=== PATIENT | female | born 1990 | race Caucasian/White ===

== ENCOUNTER 2016-05-10 18:34 | Emergency (ER) | payer MEDICAID, OTHER ==
[~2016-05-10] VITALS: Ht 157.5 cm; Wt 78.5 kg
[~2016-05-10 18:34] MED LIST: CIPR500T4 PO; HYDR-762 PO
[2016-05-10 19:09] VITALS: Ht 157.5 cm; Wt 78.5 kg
[2016-05-10] MEDS ORDERED: CETI10CA PO (19:57)
[2016-05-10] MEDS ORDERED: GUAI473L22 PO (19:57)
[2016-05-10] MEDS ORDERED: ALBU8.5H3 INH (19:57)
[2016-05-10] MEDS ORDERED: IBUP-1542 PO (19:57)
--- NOTE | 2016-05-10 20:02 | ERD ---
ER Documentation Chief Complaint Date/Time DATE: 05/10/16 TIME: 19:59 Chief Complaint bodyaches, cwp, chills, cough x 1 week HPI 26-year-old female presents here in emergency department for complaints of cough , headache, body aches, chills, chest wall pain when coughing for one week. Patient has been having dry cough, does not cough any phlegm or blood. Patient does not have any shortness of breath, has episodes of wheezing at times. Patient does not have any fever but is having on and off chills. Patient denies any sick contacts. Patient took Tylenol to help with the symptoms with only mild relief. ROS All systems reviewed and are negative except as per history of present illness. Medications Home Meds Active Scripts Albuterol Sulfate* (Proair HFA*) 8.5 Gm Hfa.aer.ad, 2 PUFF INH Q4H Y for WHEEZING AND SOB, #1 INHALER Prov:AZIZA MATTA NP 05/10/16 Ibuprofen* (Motrin*) 600 Mg Tab, 600 MG PO Q6H Y for PAIN AND OR ELEVATED TEMP, #30 TAB Prov:AZIZA MATTA NP 05/10/16 Cetirizine Hcl* (Zyrtec*) 10 Mg Capsule, 10 MG PO DAILY, #30 TAB.CHEW Prov:AZIZA MATTA NP 05/10/16 Guaifenesin-Codeine Phosphate* (Guaifenesin* AC Cough Syrup) 473 Ml Liquid, 10 ML PO Q4H Y for COUGH, #120 ML Prov:AZIZA MATTA NP 05/10/16 Ciprofloxacin Hcl* (Ciprofloxacin Hcl*) 500 Mg Tablet, 500 MG PO BID for 5 Days , TAB Prov:JEFF HALEY MD 06/14/15 Hydrocodone Bit-Acetaminophen* ([place]*) 10-325 Mg Tablet, 1 TAB PO Q6 Y for PAIN , #10 TAB Prov:JEFF HALEY MD 06/14/15 Allergies Allergies: Coded Allergies: No Known Allergy (Verified , 04/21/12) PMhx/Soc Medical and Surgical Hx: pt denies Medical Hx, pt denies Surgical Hx History of Surgery: No Anesthesia Reaction: No Hx Neurological Disorder: No Hx Respiratory Disorders: No Hx Cardiac Disorders: No Hx Psychiatric Problems: No Hx Miscellaneous Medical Probl: No Hx Alcohol Use: No Hx Substance Use: No Hx Tobacco Use: No FmHx Family History: No coronary disease, No diabetes, No other Physical Exam Vitals Vital Signs Date Time Temp Pulse Resp B/P Pulse Ox O2 Delivery O2 Flow Rate FiO2 05/10/16 19:09 98.2 80 18 123/62 100 Physical Exam GENERAL: The patient is well developed and appropriate for usual state of health, in no apparent distress. HEENT: Atraumatic. Ears: Normal tympanic membrane, no erythema or bulging. No ear canal swelling. No ear discharge. Nose: Erythematous nasal turbinates with clear nasal discharge. Throat: oropharynx erythematous with postnasal drip. No tonsillar swelling or tonsillar exudates. No lymphadenopathy. CHEST: Clear to auscultation bilaterally. There are no rales, wheezes or rhonchi. HEART: Regular rate and rhythm. No murmurs, clicks, rubs or gallops. No S3 or S4. ABDOMEN: Soft, nontender and nondistended. Good bowel sounds. No rebound or guarding. No gross peritonitis. No gross organomegaly or masses. No Posada sign or McBurney point tenderness. BACK: No midline or flank tenderness. EXTREMITIES: Equal pulses bilaterally. There is no peripheral clubbing, cyanosis or edema. No focal swelling or erythema. Full range of motion. Grossly neurovascularly intact. NEURO: Alert and oriented. Cranial nerves 2-12 intact. Motor strength in all 4 extremities with 5/5 strength. Sensation grossly intact. Normal speech and gait. SKIN: There is no apparent rash or petechia. The skin is warm and dry. HEMATOLOGIC AND LYMPHATIC: There is no evidence of excessive bruising or lymphedema. No gross cervical, axillary, or inguinal lymphadenopathy. Procedures/MDM Medical Decision Making: Patient symptoms are most likely consistent with acute bronchitis, which viral in origin. There is low suspicion for Pneumonia at this time since patients lungs sounds are clear, patient O2 saturation is normal and patient doesnt show any respiratory distress. Radiology exam is not indicated at this time. There is low suspicion for other cardiopulmonary emergencies at this time such as CHF, Pulmonary Embolism, Pneumothorax, or any other cardiopulmonary emergencies at this time. There is low suspicion for sepsis. Patient appears well and is hemodynamically stable. Fever is controlled with medicines. Disposition: Home. Condition: Stable Prescriptions: Albuterol, ibuprofen, Zyrtec, guaifenesin with codeine Instructions: Patient is advised to take medications as prescribed. Patient is advised to rest. Patient advised to increase fluid intake, do humidifier at home and if possible, do salt water gargles. Patient is advised that if symptoms are worse, shortness of breath, uncontrolled fever, stridor, vomiting, worst signs and symptoms to return to emergency department immediately. Otherwise, patient is advised to follow up with primary doctor in 5-7 days. Departure Diagnosis: Primary Impression: Acute bronchitis Bronchitis organism: unspecified organism Qualified Code: J20.9 - Acute bronchitis, unspecified organism Condition: Stable Patient Instructions: Bronchitis With Wheezing (Adult) AZIZA MATTA NP May 10, 2016 20:01
== END 2016-05-10 19:59 | disposition home or self-care (01) ==
LOC: E/R 18:34
DX: J20.9 Acute bronchitis, unspecified (principal)
CPT/HCPCS: 99283

== ENCOUNTER 2016-11-11 21:39 | Emergency (ER) | payer OTHER ==
[~2016-11-11] VITALS: Ht 162.6 cm; Wt 79.1 kg
[~2016-11-11 21:39] MED LIST changes: +ALBU8.5H3 INH; +CETI10CA PO; +GUAI473L22 PO; +IBUP-1542 PO
[2016-11-11 21:47] VITALS: Ht 162.6 cm; Wt 79.1 kg
[2016-11-11] MEDS ORDERED: HYDROmorphONE 1 MG/ML SYG IV STA (22:08)
[2016-11-11] MEDS ORDERED: ONDANSETRON 4 MG INJ IV STA (22:08)
[2016-11-11 22:30] LABS: BASOPHILS % 0.3 % (0.0-2.0); EOSINOPHILS % 1.5 % (0.0-7.0); HEMATOCRIT 35.6 % (37.0-47.0); HEMOGLOBIN 12.4 g/dl (12.0-16.0); LYMPHOCYTES % 34.5 % (15.0-51.0); MEAN CORPUSCULAR HEMOGLOBIN 31.6 pg (29.0-33.0); MEAN CORPUSCULAR HGB CONC 34.8 g/dl (32.0-37.0); MEAN CORPUSCULAR VOLUME 90.6 fl (82.0-101.0); MEAN PLATELET VOLUME 8.8 fl (7.4-10.4); MONOCYTES % 9.4 % (0.0-11.0); NEUTROPHILS % 54.1 % (39.0-77.0); PLATELET COUNT 329 10^3/UL (140-415); RED BLOOD COUNT 3.93 10^6/ul (4.20-5.40); RED CELL DISTRIBUTION WIDTH 12.3 % (11.5-14.5); WHITE BLOOD COUNT 9.4 10^3/ul (4.8-10.8)
[2016-11-11 22:31] LABS: EOSINOPHILS # 0.1 10^3/ul (0.0-0.5); LYMPHOCYTES # 3.3 10^3/ul (0.8-2.9); MONOCYTE # 0.9 10^3/ul (0.3-0.9); NEUTROPHIL # 5.1 10^3/ul (1.6-7.5)
[2016-11-11 22:52] LABS: ALBUMIN 4.5 g/dl (3.3-4.9); ALBUMIN/GLOBULIN RATIO 1.5; BILIRUBIN,INDIRECT 0.3 mg/dl (0-1.1); BILIRUBIN,TOTAL 0.3 mg/dl (0.2-1.3); CALCIUM 9.3 mg/dl (8.4-10.2); CREATININE 0.56 mg/dl (0.44-1.00); POTASSIUM 3.8 mmol/L (3.5-5.1); TOTAL PROTEIN 7.5 g/dl (6.1-8.1)
--- NOTE | 2016-11-11 22:54 | ERD ---
ER Documentation Chief Complaint Date/Time DATE: 11/11/16 TIME: 22:52 Chief Complaint back pain at home while sitting on toilet unable to get up HPI This is a 26-year-old female with a fall history with chronic low back pain due to lumbar fracture. Patient states she has chronic pain most days. She said this morning she is going to work and she noticed her pain was typical but worse than usual. She says got gradually worse as the day goes on. She says that she was on the toilet and was unable to get up because of her severe back pain. No radiation down the legs but does say she has some mild lower abdominal pain diffusely. This is a new symptom. No nausea vomiting diarrhea. Patient is speaking with a high-pitched force, histrionic speech ROS All systems reviewed and are negative except as per history of present illness. Medications Home Meds Active Scripts Albuterol Sulfate* (Proair HFA*) 8.5 Gm Hfa.aer.ad, 2 PUFF INH Q4H Y for WHEEZING AND SOB, #1 INHALER Prov:AZIZA MATTA NP 05/10/16 Ibuprofen* (Motrin*) 600 Mg Tab, 600 MG PO Q6H Y for PAIN AND OR ELEVATED TEMP, #30 TAB Prov:AZIZA MATTA NP 05/10/16 Cetirizine Hcl* (Zyrtec*) 10 Mg Capsule, 10 MG PO DAILY, #30 TAB.CHEW Prov:AZIZA MATTA NP 05/10/16 Guaifenesin-Codeine Phosphate* (Guaifenesin* AC Cough Syrup) 473 Ml Liquid, 10 ML PO Q4H Y for COUGH, #120 ML Prov:AZIZA MATTA NP 05/10/16 Ciprofloxacin Hcl* (Ciprofloxacin Hcl*) 500 Mg Tablet, 500 MG PO BID for 5 Days , TAB Prov:JEFF HALEY MD 06/14/15 Hydrocodone Bit-Acetaminophen* ([place]*) 10-325 Mg Tablet, 1 TAB PO Q6 Y for PAIN , #10 TAB Prov:JEFF HALEY MD 06/14/15 Allergies Allergies: Coded Allergies: No Known Allergy (Verified , 04/21/12) PMhx/Soc History of Surgery: No Anesthesia Reaction: No Hx Neurological Disorder: No Hx Respiratory Disorders: No Hx Cardiac Disorders: No Hx Psychiatric Problems: No Hx Miscellaneous Medical Probl: Yes (HX OF BACK PAIN/INJURY) Hx Alcohol Use: No Hx Substance Use: No Hx Tobacco Use: No Smoking Status: Never smoker FmHx Family History: No coronary disease Physical Exam Vitals Vital Signs Date Time Temp Pulse Resp B/P Pulse Ox O2 Delivery O2 Flow Rate FiO2 11/11/16 22:01 74 18 112/72 99 Room Air 11/11/16 21:47 98.7 78 18 118/67 99 Physical Exam Const: Well-developed, well-nourished Head: Atraumatic, normocephalic Eyes: Normal Conjunctiva, PERRLA, EOMI, normal sclera, no nystagmus ENT: Normal External Ears, Nose and Mouth, moist mucus membranes. Neck: Full range of motion. No meningismus, no lymphadenopathy. Resp: Clear to auscultation bilaterally, no wheezing, rhonchi, rales Cardio: Regular rate and rhythm, no murmurs, S1 S2 present Abd: Soft, slight bilateral lower quadrant tenderness, non distended. Normal bowel sounds, no guarding or rebound, no pulsitile abdominal masses or bruits Skin: No petechiae or rashes, no ecchymosis , no maculopapular rash Back: Pain to the right lower lumbar paraspinal musculature that is moderate] Ext: No cyanosis, or edema, FROM x 4, normal inspection, neurovascularly intact x 4 Neur: Awake and alert, STR 5/5 x 4, sensation intact x 4, no focal findings, cerebellum intact Psych: Normal Mood and Affect Result Diagram: 11/11/16220611/11/162206 Results 24 hrs Laboratory Tests Test 11/11/16 22:07 White Blood Count 9.410^3/ul Red Blood Count 3.9310^6/ul Hemoglobin 12.4g/dl Hematocrit 35.6% Mean Corpuscular Volume 90.6fl Mean Corpuscular Hemoglobin 31.6pg Mean Corpuscular Hemoglobin Concent 34.8g/dl Red Cell Distribution Width 12.3% Platelet Count 00200^3/UL Mean Platelet Volume 8.8fl Neutrophils % 54.1% Lymphocytes % 34.5% Monocytes % 9.4% Eosinophils % 1.5% Basophils % 0.3% Nucleated Red Blood Cells % 0.0/100WBC Neutrophils # 5.110^3/ul Lymphocytes # 3.310^3/ul Monocytes # 0.910^3/ul Eosinophils # 0.110^3/ul Basophils # 0.010^3/ul Nucleated Red Blood Cells # 0.010^3/ul Sodium Level 144mmol/L Potassium Level 3.8mmol/L Chloride Level 104mmol/L Carbon Dioxide Level 24mmol/L Anion Gap 20 Blood Urea Nitrogen 7mg/dl Creatinine 0.56mg/dl Glucose Level 109mg/dl Calcium Level 9.3mg/dl Total Bilirubin 0.3mg/dl Direct Bilirubin 0.00mg/dl Indirect Bilirubin 0.3mg/dl Aspartate Amino Transf (AST/SGOT) 35IU/L Alanine Aminotransferase (ALT/SGPT) 82IU/L Alkaline Phosphatase 98IU/L Total Protein 7.5g/dl Albumin 4.5g/dl Globulin 3.00g/dl Albumin/Globulin Ratio 1.50 Current Medications Medications (Trade) Dose Ordered Sig/Sharonda Route PRN Reason Start Time Stop Time Status Last Admin Dose Admin Hydromorphone HCl (Dilaudid) 1 mg ONCE STAT IV 11/11/16 22:08 11/11/16 22:10 DC 11/11/16 22:16 Ondansetron HCl (Zofran Inj) 4 mg ONCE STAT IV 11/11/16 22:08 11/11/16 22:10 DC 11/11/16 22:16 IV Flush 10 ml 10 ml STK-MED ONCE .ROUTE 11/11/16 23:23 11/11/16 23:24 DC 11/11/16 23:37 Sodium Chloride (NS) 100 ml @ ud STK-MED ONCE .ROUTE 11/11/16 23:23 11/11/16 23:24 DC 11/11/16 23:37 Iohexol (Omnipaque 300mg/ ml) 150 ml STK-MED ONCE .ROUTE 11/11/16 23:23 11/11/16 23:24 DC 11/11/16 23:37 Procedures/MDM PROCEDURE: CT ABDOMEN/PELVIS WITH CONTRAST CLINICAL INDICATION: 26-year-old female with abdominal pain. TECHNIQUE: The study was performed utilizing a [employer] V[employer] 64-slice CT scanner. Direct axial sections were obtained through the abdomen and pelvis with the use of 100 cc of Isovue-300 nonionic intravenous contrast material. Sagittal and coronal reformations were obtained. One or more of the following dose reduction techniques were utilized: automated exposure control, adjustment of the mA and/or kV according to patient's size or use of iterative reconstruction technique. The images were reviewed on a PACS workstation. CTD/ vol = 11.0 mGy; Total Exam DLP = 635.4 mGy-cm. COMPARISON: CT abdomen/pelvis June 14, 2015. FINDINGS: There is trace bibasilar subsegmental atelectasis. There is no evidence for significant pleural effusion. The liver has a normal contour and appears to be enlarged measuring 26.8 cm in maximal length. There is diffuse decreased density throughout the liver consistent with fatty infiltration but without focal areas of abnormal density or contrast enhancement. No intrahepatic nor extrahepatic biliary ductal dilatation is seen. The gallbladder demonstrates no wall thickening nor pericholecystic fluid. No biliary stones are evident. The pancreas is without areas of abnormal attenuation or contrast enhancement. This spleen is identified and has a normal size without abnormal density or contrast enhancement. The adrenal glands are unremarkable. The kidneys are functional bilaterally without abnormal density. No hydroureteronephrosis nor nephroureterolithiasis is evident. The urinary bladder contains a small volume of urine. There is no evidence for bowel obstruction. The appendix is visualized and is without edema or surrounding inflammatory reaction. The uterus is anteflexed. There is a probable collapse right ovarian cyst measuring approximately 11 x 10 x 9 mm. There is minimal right adnexal free fluid. The aortoiliac vessels are without aneurysmal dilatation. The osseous structures are intact. IMPRESSION: 1. Hepatomegaly with diffuse fatty infiltration. 2. No CT evidence for appendicitis. 3. Probable collapsed right ovarian cyst. 4. Minimal right adnexal free fluid. .Estuardo Cadena MD, Date Time Electronically viewed and signed by .Estuardo Cadena MD, MD on 11/12/2016 00:46 .M/ CC: TIFFANY MORGAN DO Patient is feeling better and requesting more pain medication for these. Inquired about the right adnexal pain to his it looks like she has a ruptured ovarian cyst. She says she did have a sharp incision pain yesterday but is not better. This does clinically correlate We will send the patient home on pain medication and muscle relaxers and have her start icing her back. Departure Diagnosis: Primary Impression: Back pain Back pain location: low back pain Chronicity: acute Back pain laterality: right Sciatica presence: without sciatica Qualified Code: M54.5 - Acute right-sided low back pain without sciatica Additional Impression: Ruptured ovarian cyst Condition: Stable TIFFANY MORGAN DO Nov 11, 2016 22:54
[2016-11-11] MEDS ORDERED: IOHEXOL 300MG/ML 150 ML BTL ONE (23:23)
[2016-11-11] MEDS ORDERED: SOD CHLORIDE 0.9% 100 ML ONE (23:23)
--- NOTE | 2016-11-12 00:47 | RADRPT ---
PROCEDURE: CT ABDOMEN/PELVIS WITH CONTRAST CLINICAL INDICATION: 26-year-old female with abdominal pain. TECHNIQUE: The study was performed utilizing a [employer] VCT 64-slice CT scanner. Direct axia l sections were obtained through the abdomen and pelvis with the use of 100 cc of Isovue-300 nonioni c intravenous contrast material. Sagittal and coronal reformations were obtained. One or more of the following dose reduction techniques were utilized: automated exposure control, adjustment of the mA and/or kV according to patient's size or use of iterative reconstruction technique. The images wer e reviewed on a PACS workstation. CTD/vol = 11.0 mGy; Total Exam DLP = 635.4 mGy-cm. COMPARISON: CT abdomen/pelvis June 14, 2015. FINDINGS: There is trace bibasilar subsegmental atelectasis. There is no evidence for significant pleural eff usion. The liver has a normal contour and appears to be enlarged measuring 26.8 cm in maximal lengt h. There is diffuse decreased density throughout the liver consistent with fatty infiltration but wi thout focal areas of abnormal density or contrast enhancement. No intrahepatic nor extrahepatic bili lucy ductal dilatation is seen. The gallbladder demonstrates no wall thickening nor pericholecystic f luid. No biliary stones are evident. The pancreas is without areas of abnormal attenuation or contra st enhancement. This spleen is identified and has a normal size without abnormal density or contras t enhancement. The adrenal glands are unremarkable. The kidneys are functional bilaterally without a bnormal density. No hydroureteronephrosis nor nephroureterolithiasis is evident. The urinary bladder contains a small volume of urine. There is no evidence for bowel obstruction. The appendix is visualized and is without edema or surrounding inflammatory reaction. The uterus is anteflexed. Ther e is a probable collapse right ovarian cyst measuring approximately 11 x 10 x 9 mm. There is minima l right adnexal free fluid. The aortoiliac vessels are without aneurysmal dilatation. The osseous s tructures are intact. IMPRESSION: 1. Hepatomegaly with diffuse fatty infiltration. 2. No CT evidence for appendicitis. 3. Probable collapsed right ovarian cyst. 4. Minimal right adnexal free fluid. .Estuardo Cadena MD, MD Date Time Electronically viewed and signed by .Estuardo Cadena MD, on 11/12/2016 00:46 .M/
[2016-11-12] MEDS ORDERED: ONDANSETRON 4 MG INJ IV STA (00:55)
[2016-11-12] MEDS ORDERED: HYDROmorphONE 1 MG/ML SYG IV STA (00:55)
[2016-11-12] MEDS ORDERED: METH750T93 PO (00:57)
[2016-11-12] MEDS ORDERED: IBUP800T25 PO (00:57)
[2016-11-12] MEDS ORDERED: HYDR-902 PO (00:57)
[2016-11-12 01:42] VITALS: BP 108/60; PULSE 61; RESP 18; TEMP 98.1
== END 2016-11-12 02:29 | disposition home or self-care (01) ==
LOC: E/R 21:39
DX: M54.5 Low back pain (principal); N83.201 Unspecified ovarian cyst, right side
CPT/HCPCS: 36415; 74177; 80053; 85025; 96374; 96375; 96376; 99285; J1170; J2405; Q9967

== ENCOUNTER 2016-12-25 02:13 | Emergency (ER) | payer OTHER ==
[~2016-12-25] VITALS: Ht 160 cm; Wt 75.0 kg
[~2016-12-25 02:13] MED LIST changes: +HYDR-902 PO; +IBUP800T25 PO; +METH750T93 PO
[2016-12-25 02:17] VITALS: Ht 160 cm; Wt 75.0 kg
[2016-12-25] MEDS ORDERED: ONDANSETRON (ODT) 4 MG TAB ODT STA (03:56)
[2016-12-25] MEDS ORDERED: morphine 10 MG INJ IM ONE (04:00)
--- NOTE | 2016-12-25 04:17 | ERD ---
ER Documentation Chief Complaint Date/Time DATE: 12/25/16 TIME: 04:14 Chief Complaint low back pain running down to left leg left thigh, sciatic pain HPI 26-year-old female presents in emergency department for complaints of lower back pain, left lower back pain radiating to the left lower leg and lower thigh area that she has been having for the last 2 months on and off, it got worse tonight. Patient described the pain as sharp pain, 6/10 scale, it radiates from the left lower back to the left lower leg. Patient was given ibuprofen and [place] home with only mild relief. Patient denies any trauma in the affected area. Patient denies any fever or chills. Patient denies any hematuria or dysuria. ROS All systems reviewed and are negative except as per history of present illness. Medications Home Meds Active Scripts Methocarbamol* (Robaxin*) 750 Mg Tablet, 750 MG PO TID, #20 TAB Prov:TIFFANY MORGAN DO 11/12/16 Ibuprofen* (Motrin*) 800 Mg Tab, 800 MG PO Q6H Y for PAIN AND OR ELEVATED TEMP, #30 TAB Prov:TIFFANY MORGAN DO 11/12/16 Hydrocodone/Acetaminophen ([place] 10-325 Tablet) 1 Each Tablet, 1 TAB PO Q6H Y for PAIN, #20 TAB Prov:TIFFANY MORGAN DO 11/12/16 Albuterol Sulfate* (Proair HFA*) 8.5 Gm Hfa.aer.ad, 2 PUFF INH Q4H Y for WHEEZING AND SOB, #1 INHALER Prov:AZIZA MATTA NP 05/10/16 Ibuprofen* (Motrin*) 600 Mg Tab, 600 MG PO Q6H Y for PAIN AND OR ELEVATED TEMP, #30 TAB Prov:AZIZA MATTA NP 05/10/16 Cetirizine Hcl* (Zyrtec*) 10 Mg Capsule, 10 MG PO DAILY, #30 TAB.CHEW Prov:AZIZA MATTA NP 05/10/16 Guaifenesin-Codeine Phosphate* (Guaifenesin* AC Cough Syrup) 473 Ml Liquid, 10 ML PO Q4H Y for COUGH, #120 ML Prov:AZIZA MATTA NP 05/10/16 Ciprofloxacin Hcl* (Ciprofloxacin Hcl*) 500 Mg Tablet, 500 MG PO BID for 5 Days , TAB Prov:JEFF HALEY MD 06/14/15 Hydrocodone Bit-Acetaminophen* ([place]*) 10-325 Mg Tablet, 1 TAB PO Q6 Y for PAIN , #10 TAB Prov:JEFF HALEY MD 06/14/15 Allergies Allergies: Coded Allergies: No Known Allergy (Verified , 04/21/12) PMhx/Soc History of Surgery: No Anesthesia Reaction: No Hx Neurological Disorder: No Hx Respiratory Disorders: No Hx Cardiac Disorders: No Hx Psychiatric Problems: No Hx Miscellaneous Medical Probl: Yes (HX OF BACK PAIN/INJURY) Hx Alcohol Use: No Hx Substance Use: No Hx Tobacco Use: No FmHx Family History: No coronary disease, No diabetes, No other Physical Exam Vitals Vital Signs Date Time Temp Pulse Resp B/P Pulse Ox O2 Delivery O2 Flow Rate FiO2 12/25/16 02:17 98.2 88 20 140/66 98 Physical Exam GENERAL: The patient is well developed and appropriate for usual state of health, in no apparent distress. CHEST: Clear to auscultation bilaterally. There are no rales, wheezes or rhonchi. HEART: Regular rate and rhythm. No murmurs, clicks, rubs or gallops. No S3 or S4. ABDOMEN: Soft, nontender and nondistended. Good bowel sounds. No rebound or guarding. No gross peritonitis. No gross organomegaly or masses. No Posada sign or McBurney point tenderness. BACK: No midline or flank tenderness.Positive left straight leg test, noted muscle spasm in the left paraspinal aspect of the lumbar spine. EXTREMITIES: Equal pulses bilaterally. There is no peripheral clubbing, cyanosis or edema. No focal swelling or erythema. Full range of motion. Grossly neurovascularly intact. NEURO: Alert and oriented. Cranial nerves 2-12 intact. Motor strength in all 4 extremities with 5/5 strength. Sensation grossly intact. Normal speech and gait. SKIN: There is no apparent rash or petechia. The skin is warm and dry. HEMATOLOGIC AND LYMPHATIC: There is no evidence of excessive bruising or lymphedema. No gross cervical, axillary, or inguinal lymphadenopathy. Results 24 hrs Current Medications Medications (Trade) Dose Ordered Sig/Sharonda Route PRN Reason Start Time Stop Time Status Last Admin Dose Admin Morphine Sulfate (morphine) 6 mg ONCE ONCE IM 12/25/16 04:00 12/25/16 04:01 DC 12/25/16 04:12 Ondansetron HCl (Zofran Odt) 4 mg ONCE STAT ODT 12/25/16 03:56 12/25/16 03:57 DC 12/25/16 04:11 Diazepam (Valium) 5 mg ONCE ONCE IM 12/25/16 04:30 12/25/16 04:31 DC 12/25/16 04:25 Hydromorphone HCl (Dilaudid) 1 mg ONCE STAT IV 12/25/16 05:08 12/25/16 05:11 DC Patient was given medication for pain here in emergency department, after treatment, patient verbalized feeling much better. Patient's pain is improved.Zofran was given to prevent vomiting, Valium was also given PROCEDURE: CT L-Spine. CLINICAL INDICATION: Back pain TECHNIQUE: Section spiral CT images through the lumbar spine without contrast. Multiplanar reconstructions. .The CTDIvol is 18.79 mGy and the DLP is 655.55 mGycm. One or more of the following dose reduction techniques were used: automated exposure control, adjustment of the mA and/or kV according to patient size, or use of iterative reconstruction technique. COMPARISON: CT of the abdomen and pelvis from 11/11/2016 FINDINGS: Minimal L5-S1 retrolisthesis is again seen. Alignment otherwise anatomic. The appendix is normal in appearance. Visualized portions of the liver show diffuse hepatic steatosis. Vertebral body heights are preserved. There is mild L5-S1 disk space narrowing. The disk spaces from T12-L1 through L4-5 are unremarkable. Disk space heights are preserved. There is no evidence for disk herniation or canal or significant foraminal narrowing. L5-S1: Slight disk space narrowing. Uncovering of the intervertebral disk and posterior osteophyte of the inferior aspect of L5 with disk bulge and probable central and left paracentral disk protrusion. There is associated canal narrowing with AP canal diameter of approximately 8 mm. Right greater than left foraminal narrowing. These changes are similar to prior. IMPRESSION: Central left paracentral disk protrusion at L5-S1 with disk space narrowing and canal and foraminal narrowing. MRI may be helpful for further evaluation. RPTAT: [facility] Physician [place] Date Time Electronically viewed and signed by Dede Roberts Physician on 12/25/2016 05 :17 LE/ Procedures/MDM Medical Decision Making: Patient's pain is most likely consistent with a back pain caused by sciatica from disc disease. There is no suspicion for neurovascular compromise. Patient has intact sensation and circulation of the affected extremity and distal extremities. No incontinence, no suspicion for cauda equina syndrome, no saddle anesthesia, no symptoms of any acute bacterial infection, no symptoms of any perirectal abscesses, pilonidal cyst.There is low suspicion for septic arthritis. Patient does not have any fever. No symptoms of any aortic dissection or aortic aneurysm. Radiology exam no fracture or dislocation Disposition: Home. Patient is given prescription for ibuprofen for mild to moderate pain, Percocet for severe pain, Valiumfor muscle spasm, Prednisone. Patient was advised to avoid heavy lifting , apply warm compresses on affected area. Patient was advised that if symptoms are worse, numbness, tingling, high fever, unable to move joint, worsening symptoms, to return to emergency department immediately. Otherwise, patient is advised to follow up with the primary care doctor in 5-7 days for reevaluation of symptoms. Departure Diagnosis: Primary Impression: Back pain Back pain location: low back pain Chronicity: acute Back pain laterality: bilateral Sciatica presence: with sciatica Sciatica laterality: sciatica of left side Qualified Code: M54.42 - Acute bilateral low back pain with left- sided sciatica Additional Impression: Degenerative disc disease Spinal region: lumbar Qualified Code: M51.36 - Degeneration of intervertebral disc of lumbar region Condition: Stable Patient Instructions: Back Pain W/ Sciatica, Degenerative Disk Disease Additional Instructions: Patient is given prescription for ibuprofen for mild to moderate pain, Percocet for severe pain, Valiumfor muscle spasm, Prednisone. Patient was advised to avoid heavy lifting , apply warm compresses on affected area. Patient was advised that if symptoms are worse, numbness, tingling, high fever, unable to move joint, worsening symptoms, to return to emergency department immediately. Otherwise, patient is advised to follow up with the primary care doctor in 5-7 days for reevaluation of symptoms. AZIZA MATTA NP Dec 25, 2016 04:17
[2016-12-25] MEDS ORDERED: DIAZEPAM 5 MG/ML SYG IM ONE (04:30)
[2016-12-25] MEDS ORDERED: HYDROmorphONE 1 MG/ML SYG IV STA (05:08)
--- NOTE | 2016-12-25 05:17 | RADRPT ---
PROCEDURE: CT L-Spine. CLINICAL INDICATION: Back pain TECHNIQUE: Section spiral CT images through the lumbar spine without contrast. Multiplanar recons tructions. .The CTDIvol is 18.79 mGy and the DLP is 655.55 mGycm. One or more of the following dos e reduction techniques were used: automated exposure control, adjustment of the mA and/or kV accordi ng to patient size, or use of iterative reconstruction technique. COMPARISON: CT of the abdomen and pelvis from 11/11/2016 FINDINGS: Minimal L5-S1 retrolisthesis is again seen. Alignment otherwise anatomic. The appendix is normal i n appearance. Visualized portions of the liver show diffuse hepatic steatosis. Vertebral body heig hts are preserved. There is mild L5-S1 disk space narrowing. The disk spaces from T12-L1 through L4-5 are unremarkable. Disk space heights are preserved. There is no evidence for disk herniation or canal or significant foraminal narrowing. L5-S1: Slight disk space narrowing. Uncovering of the intervertebral disk and posterior osteophyte o f the inferior aspect of L5 with disk bulge and probable central and left paracentral disk protrusio n. There is associated canal narrowing with AP canal diameter of approximately 8 mm. Right greater than left foraminal narrowing. These changes are similar to prior. IMPRESSION: Central left paracentral disk protrusion at L5-S1 with disk space narrowing and canal and foraminal narrowing. MRI may be helpful for further evaluation. RPTAT: [facility] Physician Gordo Date Time Electronically viewed and signed by Physician Gordo on 12/25/2016 05:17 LE/
[2016-12-25] MEDS ORDERED: PRED50TA PO (05:28)
[2016-12-25] MEDS ORDERED: DIAZ-90 PO (05:28)
[2016-12-25] MEDS ORDERED: DOCU-144 PO (05:28)
[2016-12-25] MEDS ORDERED: IBUP-1542 PO (05:28)
[2016-12-25] MEDS ORDERED: OXYC-209 PO (05:28)
[2016-12-25] MEDS ORDERED: METHYLPREDNISOLONE 125 MG INJ IV ONE (05:30)
[2016-12-25 06:04] VITALS: BP 105/59; PULSE 64; RESP 16; TEMP 97.6
== END 2016-12-25 06:24 | disposition home or self-care (01) ==
LOC: FTE 02:13
DX: M54.42 Lumbago with sciatica, left side (principal); M51.36 Other intervertebral disc degeneration, lumbar region
CPT/HCPCS: 72131; 96372; 96374; 96375; 99285; J1170; J2270; J2930; J3360